=== PATIENT | female | born 2000 | race African-American/Black ===

== ENCOUNTER 2020-09-04 20:02 | Emergency (ER) | payer BC ==
[~2020-09-04] VITALS: Ht 172.7 cm; Wt 55.8 kg
--- NOTE | 2020-09-04 20:35 | PHYS DOC ---
Past History Past Medical History: No Pertinent History (YOLANDA CALDERON APRN) Past Surgical History: Other Additional Past Surgical Histo: IUD removal (YOLANDA CALDERON APRN) Alcohol Use: None (YOLANDA CALDERON APRN) Adult General Chief Complaint Chief Complaint: ABDOMINAL PAIN HPI HPI Patient is a 20-year-old female presents to the emergency department complaining of abdominal pain for several months, patient states the last 2 months she was having nausea and diarrhea every single day. Patient states she has had several urgent care visits and emergency room visits, the last one being at [facility] emergency department where she was told that there was nothing acutely wrong with her and to follow-up with a GI specialist. Patient states that she had an appointment to see a GI doctor but decided instead to cancel the appointment and get her IUD out. Patient reports having 20 diarrhea spells today filled with wh at she describes as yellow chunks, vomited x4 today. Complains of nausea. Patient states "I have McBurney's point tenderness "patient denies UTI signs and symptoms, denies vaginal discharge, denies STI concerns. Patient states her last normal menstrual cycle was 18 days ago. Patient reports her pain at a 6/10 on a 1-10 pain scale currently and reports that it rises to an 8/10 pain when she is having her diarrhea or vomiting spells. Patient denies fever or chills, chest pains, cough, shortness of breath, constipation problems, tingling or numbness of her extremities, extremity swelling, loss of taste or loss of smell. Patient denies any COVID-19 virus symptoms stating that she recently tested negative. Patient denies any other physical complaints or physical concerns. (YOLANDA CALDERON APRN) Review of Systems Review of Systems 14 body systems of review of systems have been reviewed. See HPI for pertinent positives and negative responses, otherwise all other systems are negative, nonpertinent or noncontributory. (YOLANDA CALDERON APRN) Allergies Allergies Allergies Coded Allergies Type Severity Reaction Last Updated Verified Penicillins Allergy Unknown 09/04/20 Yes codeine Allergy Unknown 09/04/20 Yes (YOLANDA CALDERON APRN) Physical Exam Physical Exam Constitutional: Well developed, well nourished, no acute distress, non-toxic appearance. HENT: Normocephalic, atraumatic, bilateral external ears normal, oropharynx moist, no oral exudates, nose normal. Oropharynx pink, moist, no signs of excessive vomiting that patient complains of. Eyes: PERRLA, EOMI, conjunctiva normal, no discharge. Neck: Normal range of motion, no tenderness, supple, no stridor. No nuchal rigidity, no meningismus signs. Cardiovascular:Heart rate regular rhythm, no murmur, heart sounds S1-S2 to auscultation. Lungs & Thorax: Bilateral breath sounds clear to auscultation all lung hill. Abdomen: Bowel sounds normal, soft, no masses, no pulsatile masses. Patient reports pain to palpation of McBurney's point, no guarding, negative Brooks sign, negative psoas sign, negative rebound tenderness. Skin: Warm, dry, no erythema, no rash. Back: No tenderness, no CVA tenderness. Extremities: No tenderness, no cyanosis, no clubbing, ROM intact, no edema. Neurologic: Alert and oriented X 3, normal motor function, normal sensory function, no focal deficits noted. Psychologic: Affect normal, judgement normal, mood normal. Patient anxious during physical exam (YOLANDA CALDERON APRN) Current Patient Data Vital Signs Vital Signs Date Time Temp Pulse Resp B/P (MAP) Pulse Ox O2 Delivery O2 Flow Rate FiO2 09/04/20 20:11 97.6 107 16 139/93 (108) 99 Room Air (YOLANDA CALDERON APRN) EKG EKG [] (YOLANDA CALDERON APRN) Radiology/Procedures Radiology/Procedures [] (YOLANDA CALDERON APRN) Heart Score Risk Factors: Risk Factors: DM, Current or recent (<one month) smoker, HTN, HLP, family history of CAD, obesity. Risk Scores: Risk Factors: DM, Current or recent (<one month) smoker, HTN, HLP, family history of CAD, obesity. (YOLANDA CALDERON APRN) Course & Med Decision Making Course & Med Decision Making Pertinent Labs and Imaging studies reviewed. (See chart for details) 20-year-old female, vital signs stable, presents emergency department for evaluation of a several month history of abdominal pains, nausea, vomiting, diarrhea. Physical exam was unremarkable. Patient did however complain of "I have McBurney's point tenderness "patient did complain of pain during right lower quadrant palpation however there was no guarding, her reaction of pain was with a flat affect. ER work-up: CBC, BMP, urine assay, urine , lipase, 1 L normal saline, saline lock, 4 mg Zofran for complaint of nausea, CT abdomen pelvis with contrast to rule out infectious process. Serum potassium low at 3.3, patient given 20 mEq p.o. potassium in the ED. At 2204, discussed patient case with ED attending Dr. Alcantar. Dr. Alcantar has agreed to take over patient care at this time. (YOLANDA CALDERON APRN) Course & Med Decision Making On reassessment patient stated she was still having mild pain, 3 out of 10, intermittent and was given Tylenol which did help. Laboratory analysis was not concerning. CT noted adnexal mass. Transvaginal ultrasoundComplete transvaginal pelvic ultrasound IMPRESSION: Right ovary enlarged due to a 4.5 cm hemorrhagic cyst. Intact bilateral ovarian blood flow without evidence of torsion. Follow-up pelvic sonography in 3 months is advised. Discussed all findings with patient and advised calling her primary care/[employer] first thing in the morning to discuss ED visit and hemorrhagic cyst and set up a follow-up appointment as soon as she can to discuss ED visit and need for repeat ultrasound in 3 months. Advised Tylenol and ice as needed at home for pain control. Advised to come back to the emergency department immediately with any new or concerning symptoms, patient verbalized understanding and agreed with plan of discharge. (SEAN ALCANTAR MD) Dragon Disclaimer Dragon Disclaimer This electronic medical record was generated, in whole or in part, using a voice recognition dictation system. (YOLANDA CALDERON APRN) Departure Departure: Impression: Primary Impression: Abdominal pain Additional Impressions: Nausea vomiting and diarrhea Hemorrhagic cyst of ovary Disposition: 01 DC HOME SELF CARE/HOMELESS Condition: IMPROVED Referrals: GENE RAHMAN (PCP) Patient Instructions: Abdominal Pain, Diarrhea, Nausea and Vomiting Additional Instructions: Please take medications as prescribed, please follow-up with GI specialist this week, see your primary care for ongoing abdominal pains with nausea vomiting, return to the emergency department for worsening symptoms or other concerns. EMERGENCY DEPARTMENT GENERAL DISCHARGE INSTRUCTIONS Thank you for coming to [facility] (ED) today and trusting us with you care. We trust that you had a positivie experience in our Emergency Department. If you wish to speak to the department management, you may call the director at [phone]. YOUR FOLLOW UP INSTRUCTIONS ARE FOLLOWS: 1. Do you have a private Doctor? If you do not have a private doctor, please ask for a resource list of physicians or clinics that may be able to assist you with follow up care. 2. The Emergency Physician has interpreted your x-rays. The X-Ray specialist will also review them. If there is a change in the findings, you will be notified in 48 hours when at all possible. 3. A lab test or culture has been done, your results will be reviewed and you will be notified if you need a change in treatment. ADDITIONAL INSTRUCTIONS AND INFORMATION: 1. Your care today has been supervised by a physician who is specially trained in emergency care. Many problems require more than one evaluation for a complete diagnosis and treatment. We recommend that you schedule your follow up appointment as recommended to ensure complete treatment of you illness or injury. If you are unable to obtain follow up care and continue to have a problem, or if your condition worsens, we recommend that you return to the ED. 2. We are not able to safely determine your condition over the phone nor are we able to give sound medical advice over the phone. For these safety reasons, if you call for medical advice we will ask you to come to the ED for further evaluation. 3. If you have any questions regarding these discharge instructions please call the ED at [phone]. SAFETY INFORMATION: In the interest of safety, wellness, and injury prevention; we encourage you to wear your sealbelt, if you smoke; quite smoking, and we encourage family to use a protective helmet for bicycling and other sporting events that present an increased risk for head injury. IF YOUR SYMPTOMS WORSEN OR NEW SYMPTOMS DEVELOP, OR YOU HAVE CONCERNS ABOUT YOUR CONDITION; OR IF YOUR CONDITION WORSENS WHILE YOU ARE WAITING FOR YOUR FOLLOW UP APPOINTMENT; EITHER CONTACT YOUR PRIMARY CARE DOCTOR, THE PHYSICIAN WHOSE NAME AND NUMBER YOU WERE GIVEN, OR RETURN TO THE ED IMMEDIATELY. Scripts Ondansetron (ONDANSETRON ODT) 4 Mg Tab.rapdis 1 TAB PO PRN Q6-8HRS for NAUSEA, #16 TAB 0 Refills Prov: YOLANDA CALDERON [employer]ER 09/04/20 Problem Qualifiers Primary Impression: Abdominal pain Abdominal location: right lower quadrant Qualified Codes: R10.31 - Right lower quadrant pain YOLANDA CALDERON APRN Sep 04, 2020 20:35 SEAN ALCANTAR MD Sep 04, 2020 23:56
[2020-09-04] MEDS ORDERED: IV NORMAL SALINE 1,000ML 1,000 ML IV ONE (21:00)
[2020-09-04] MEDS ORDERED: ONDANSETRON PF 4 MG/2 ML VIAL. IVP ONE (21:00)
[2020-09-04 21:05] LABS: BASO % 0 % (0-3); EOS % 0 % (0-3); HEMATOCRIT 39.7 % (36.0-47.0); HEMOGLOBIN 13.2 g/dL (12.0-15.5); LYMPH # 1.8 x10^3/uL (1.0-4.8); LYMPH % 16 % (24-48); MEAN CORPUSCULAR HEMOGLOBIN 30 pg (25-35); MEAN CORPUSCULAR HGB CONC 33 g/dL (31-37); MEAN CORPUSCULAR VOLUME 91 fL (79-100); MONO # 0.9 x10^3/uL (0.0-1.1); MONO % 8 % (0-9); NEUT # 8.3 x10^3uL (1.8-7.7); NEUT % 75 % (31-73); PLATELET COUNT 219 x10^3/uL (140-400); RED BLOOD COUNT 4.37 x10^6/uL (3.50-5.40); RED CELL DISTRIBUTION WIDTH 13.6 % (11.5-14.5)
[2020-09-04 21:13] LABS: CALCIUM 9.4 mg/dL (8.5-10.1); CREATININE 0.8 mg/dL (0.6-1.0); GFR 108.5; POTASSIUM 3.3 mmol/L (3.5-5.1)
[2020-09-04 21:19] LABS: ALBUMIN/GLOBULIN RATIO 1.1 (1.0-1.7); TOTAL PROTEIN 7.7 g/dL (6.4-8.2)
[2020-09-04] MEDS ORDERED: LOPE-101 PO (21:40)
[2020-09-04] MEDS ORDERED: ONDA4TAB12 PO (21:40)
[2020-09-04 21:42] LABS: BILIRUBIN,URINE SMALL (NEG); CLARITY,URINE CLEAR; COLOR,URINE YELLOW; GLUCOSE,URINE NEG (NEG)
[2020-09-04 21:43] LABS: BACTERIA,URINE FEW /HPF (0-FEW); NITRITE,URINE NEG (NEG); SQUAMOUS EPITHELIAL CELL,UR MOD /LPF; UROBILINOGEN,URINE 0.2 mg/dL (0.2 mg/dL)
[2020-09-04] MEDS ORDERED: IOHEXOL 300 MG/ML 75 ML VIAL. IV ONE (22:00)
[2020-09-04] MEDS ORDERED: POTASSIUM CHLORIDE 20 MEQ TABLET.ER. PO ONE (22:00)
--- NOTE | 2020-09-04 22:19 | RAD ---
EXAM: CT Abdomen and Pelvis with IV contrast INDICATION: Reason: RLQ PAIN, OMNI 300, 75ml / Spl. Instructions: / History: TECHNIQUE: Multi-detector row CT images were acquired from the lung bases through the abdomen and pel vis with the use of IV contrast. Sagittal and coronal images were acquired from the transaxial data. All CT scans performed at this facility utilize dose optimization techniques as appropriate to the ex am, including the following: Automated exposure control and adjustment of the mA and/or KV according to patient size (this includes techniques or standardized protocols for targeted exams where dose is indication/reason for exam). IV CONTRAST: Administered ORAL CONTRAST: Not administered COMPARISON: None FINDINGS: LOWER CHEST: Unremarkable LIVER: Unremarkable BILIARY SYSTEM: Gallbladder is unremarkable. Bile ducts are not dilated. PANCREAS: Unremarkable SPLEEN: Unremarkable ADRENALS: Unremarkable KIDNEYS & URETERS: Unremarkable BLADDER: Unremarkable REPRODUCTIVE ORGANS: There is a 5 cm ring-enhancing cystic structure in the right adnexa, adjacent t o the uterus. GASTROINTESTINAL: The distal large bowel is spasmed and demonstrates mucosal hyperemia and mild mesen teric hyperemia. The appendix is normal in its visualized portion. MESENTERY/PERITONEUM/RETROPERITONEUM: Small amount of pelvic free fluid is present. No free air. VASCULAR: Unremarkable LYMPH NODES: No adenopathy OSSEOUS & SOFT TISSUES: Unremarkable IMPRESSION: No evidence of acute appendicitis by CT but there is a 5 cm ring-enhancing cystic structure in the ri ght adnexa that could represent a hemorrhagic cyst versus tubo-ovarian complex. Correlate clinically and consider pelvic ultrasound in further evaluation if clinically warranted. Electronically signed by: Ever Jaimes MD (09/04/2020 10:06 PM) [facility]
[2020-09-04] MEDS ORDERED: ACETAMINOPHEN 500 MG TABLET PO ONE (23:00)
--- NOTE | 2020-09-04 23:50 | RAD ---
Complete transvaginal pelvic ultrasound HISTORY: Right lower quadrant pain. Abnormal CT abdomen with right adnexal cystic structure. FINDINGS: Transvaginal transducer was utilized. Anteverted uterus measures 7.1 x 4.2 x 3.8 cm. No huslia rine mass. Endometrium thickness 0.3 cm. Right ovary enlarged measuring 5.0 x 4.9 x 3.7 cm and predom inantly replaced by a hypoechoic hemorrhagic cyst with several lacelike internal thin septations, the cyst measures 4.5 x 4.4 x 3.4 cm, the ovarian parenchyma is displaced peripherally about the cyst wh ich demonstrates intact ovarian blood flow peripheral to assess without evidence of torsion with norm al arterial waveforms documented. No blood flow internally within this cystic mass evident. Left ovar y measures 1.8 x 2.4 x 2.0 cm. Intact left ovarian blood flow with normal waveforms. Small volume of simple fluid at cul-de-sac. IMPRESSION: Right ovary enlarged due to a 4.5 cm hemorrhagic cyst. Intact bilateral ovarian blood el w without evidence of torsion. Follow-up pelvic sonography in 3 months is advised. Electronically signed by: Ronald Baez MD (09/04/2020 11:43 PM) [facility]
[2020-09-05 00:14] VITALS: BP 111/70
== END 2020-09-05 00:12 | disposition home or self-care (01) ==
LOC: ER 20:02
DX: R10.31 Right lower quadrant pain (principal); R11.2 Nausea with vomiting, unspecified; N83.201 Unspecified ovarian cyst, right side; R19.7 Diarrhea, unspecified; Z98.890 Other specified postprocedural states; Z88.0 Allergy status to penicillin; Z88.5 Allergy status to narcotic agent
CPT/HCPCS: 36415; 74177; 76830; 80053; 81001; 81025; 83690; 85025; 96374; 96375; 96376; 99285; J2405; J3010; J7030; Q9967